=== PATIENT | male | born 1965 | race African-American/Black ===

== ENCOUNTER 2017-10-19 10:02 | Day surgery (SDC) | payer OTHER ==
[~2017-10-19 10:02] MED LIST: ATROPINE 1 MG/10 ML SYRINGE IV; CEFAZOLIN 1 GM INJ; DIPHENHYDRAMINE 50 MG INJ IV; EPHEDrine SULFATE 50 MG/5 ML SYG IV; FENTAnyl 50 MCG/ML VIAL IV; HYDROmorphONE (0.2 MG/ML) 10ML SYG IV; LABETALOL HCL 20MG INJ IV; MEPERIDINE 25 MG INJ IV; MIDAZOLAM 1 MG/ML 2 ML INJ IV; ONDANSETRON 4 MG INJ IV; OXYCODONE/ACETAMINOPHEN (5/325) TAB PO; SOD CHLORIDE 0.9% 1,000 ML IV; SUCCINYLCHOLINE CHLORIDE 100 MG/5 ML SYG IV; hydrALAzine 20 MG INJ IV; morphine (1 MG/ML) 10ML SYRINGE IV
[2017-10-19] MEDS ORDERED: LIDOCAINE 2% (SDV) 5 ML INJ (14:20)
[2017-10-19] MEDS ORDERED: GLYCOPYRROLATE 0.4 MG INJ (14:20)
[2017-10-19] MEDS ORDERED: PROPOFOL 20 ML (14:20)
[2017-10-19] MEDS ORDERED: ROCURONIUM 50 MG INJ (14:20)
[2017-10-19] MEDS ORDERED: NEOSTIGMINE 3 MG/3 ML SYRINGE (14:20)
[2017-10-19] MEDS ORDERED: DEXAMETHASONE 4 MG/ML 1 ML INJ (14:21)
[2017-10-19] MEDS ORDERED: FENTAnyl 50 MCG/ML VIAL (14:21)
[2017-10-19] MEDS ORDERED: MIDAZOLAM 1 MG/ML 2 ML INJ (14:21)
[2017-10-19] MEDS ORDERED: ONDANSETRON 4 MG INJ (14:21)
[2017-10-19] MEDS ORDERED: ONDANSETRON 4 MG INJ IV (14:30)
[2017-10-19] MEDS ORDERED: OXYCODONE/ACETAMINOPHEN (5/325) TAB PO (14:30)
[2017-10-19] MEDS ORDERED: morphine 2 MG INJ IV (14:30)
[2017-10-19] MEDS ORDERED: NEOMYC/POLYMYX/BACIT 30 GM OINT (14:36)
[2017-10-19] MEDS: LIDOCAINE 1%/EPI 30 ML INJ (15:26)
== END 2017-10-19 17:51 | disposition home or self-care (01) ==
LOC: SDS 10:02
DX: L91.0 Hypertrophic scar (principal); E78.5 Hyperlipidemia, unspecified; I10 Essential (primary) hypertension; E11.9 Type 2 diabetes mellitus without complications; E66.01 Morbid (severe) obesity due to excess calories
CPT/HCPCS: 14021; 88304